=== PATIENT | female | born 1965 | race Caucasian/White ===

== ENCOUNTER 2019-01-02 16:06 | Emergency (ER) | payer OTHER ==
--- OUTSIDE RECORDS SUMMARY | 2019-01-02 16:09 | XMS REPORT | Clinical Summary ---
:1965 Author Organization [facility] Address [address] [place] [address] Care Team Providers Name Role Phone Prabha Fam MD Primary Care Provider Allergies Active Allergy Reactions Severity Noted Date Comments Hydromorphone Hives 12/28/2017 Mushroom Anaphylaxis High 12/29/2017 Nsaids (Non-Steroidal Anti-Inflammatory 07/13/2018 bleeding Drug) Tramadol GI Intolerance 12/28/2017 Medications Medication Sig Dispensed Refills Start Date End Date Status albuterol (PROAIR Inhale 2 0 Active HFA) 90 mcg/actuation puffs every 6 inhaler (six) hours as needed for wheezing. furosemide (LASIX) 20 Take 20 mg by 0 Active mg tablet mouth as needed. fluticasone (FLONASE) 2 sprays by 0 Active 50 mcg/actuation Each Nare nasal spray route daily. acetaminophen-codeine Take 1 tablet 0 Discontinued (TYLENOL WITH CODEINE by mouth 8 #3) 300-30 mg per every 4 tablet (four) hours as needed for moderate pain. DULoxetine (CYMBALTA) Take 1 7 capsule 0 01/01/2018 60 MG capsule capsule (60 8 mg total) by mouth daily for 7 days. methocarbamol Take 1 tablet 40 tablet 0 12/31/2017 (ROBAXIN) 500 MG (500 mg 8 tablet total) by mouth every 6 (six) hours as needed for muscle spasms for up to 10 days. promethazine Take 1 tablet 20 tablet 0 07/13/2018 (PHENERGAN) 12.5 MG (12.5 mg 8 tablet total) by mouth every 6 (six) hours as needed for nausea or vomiting for up to 30 days. doxycycline Take 1 14 capsule 0 07/15/2018 (VIBRAMYCIN) 100 MG capsule (100 8 capsuleIndications: mg total) by Thrombophlebitis of mouth 2 (two) arm, right times a day for 7 days. Active Problems Problem Noted Date Closed displaced fracture of fifth metacarpal bone of left hand 12/29/2017 Displaced fracture of shaft of fifth metacarpal bone, left hand, initial 12/28 encounter for closed fracture Encounters Date Type Specialty Care Team Description 08/29/2018 Office Visit Orthopedic Surgery Ron, Retained orthopedic Amanda Urrutia, hardware (Primary Dx) 07/25/2018 Office Visit Orthopedic Surgery Ron Painful orthopaedic Amanda Urrutia, hardware (Primary Dx) 07/15/2018 Orders Only Orthopedic Surgery Gigi, Thrombophlebitis of Tala Ochoa MA arm, right (Primary Dx) 07/13/2018 Surgery Orthopedic Surgery Ron, REMOVAL, ORTHOPEDIC Amanda Urrutia, HARDWARE SMALL FINGER 07/13/2018 Anesthesia Event Orthopedic Surgery Naty Byrnes MD 07/13/2018 Hospital Encounter Orthopedic Surgery Amanda Velasquez MD 07/05/2018 Pre-Admit Testing Pre-Admission Ron, Preop examination Appointment Testing Amanda Urrutia (Primary Dx) 07/05/2018 Office Visit Orthopedic Kem Velasquez, Left hand pain ( Primary Dx); Amanda Urrutia, Closed displaced fracture of fifth metacarpal bone of left hand with delayed healing, unspecified portion of metacarpal, subsequent encounter 03/30/2018 Office Visit Orthopedic Surgery Ron, Closed displaced Amanda Urrutia, fracture of fifth MD metacarpal bone of left hand with routine healing, unspecified portion of metacarpal, subsequent encounter (Primary Dx) 02/07/2018 Office Visit Orthopedic Kem Velasquez, Closed displaced fracture of shaft of fifth metacarpal bone of left hand with routine healing, subsequent encounter (Primary Dx); Amanda Urrutia Left hand pain 01/10/2018 Office Visit Orthopedic Surgery Ron, Displaced fracture of shaft of fifth metacarpal bone, left hand, initial encounter for closed fracture (Primary Dx); Amanda Ghada, Left hand pain MD after 01/01/2018 Social History Tobacco Use Types Packs/Day Years Used Date Never Smoker Smokeless Tobacco: Never Used Alcohol Use Drinks/Week oz/Week Comments Yes SOCIAL Sex Assigned at Date Recorded Not on file Job Start Date Occupation Industry Not on file Not on file Not on file Travel History Travel Start Travel End No recent travel history available. Last Filed Vital Signs Vital Sign Reading Time Taken Blood Pressure 108/57 07/13/2018 12:17 PM CDT Pulse 51 07/13/2018 12:17 PM CDT Temperature 36.7 C (98 F) 07/13/2018 12:17 PM CDT Respiratory Rate 16 07/13/2018 1:11 PM CDT Oxygen Saturation 95% 07/13/2018 12:17 PM CDT Inhaled Oxygen Concentration - - Weight 118 kg (260 lb 3 oz) 07/13/2018 8:08 AM CDT Height 167.6 cm (5' 6") 07/13/2018 8:08 AM CDT Body Mass Index 42 07/13/2018 8:08 AM CDT Plan of Treatment Health Maintenance Due Date Last Done Comments CERVICAL CANCER SCREENING 1984 BREAST CANCER SCREENING 2013 COLON CANCER SCREENING 2013 SHINGLES VACCINES (#1) 2013 INFLUENZA VACCINE 06/08/2018 Implants Implanted Type Area Drier Transfer Car Operator Device Shelf Model / Identifier Expiration Serial / Lot Date 1.5mm Straight Locking Plate, Alps Hand - [id number] IMPLANT Left: BIOMET TRAUMA [id number] / Implanted: Qty: 1 on 12/29/2017 by Amanda Velasquez MD DEVICES Hand / 1.5mm X 9mm Locking Screw, Alps Hand - [id number] [id number] IMPLANT Left: BIOMET TRAUMA [id number] / Implanted: Qty: 2 on 12/29/2017 by Amanda Velasquez MD DEVICES Hand / 1.5mm X 11mm Locking Screw, Alps Hand - [id number] [id number] IMPLANT Left: BIOMET TRAUMA [id number] / Implanted: Qty: 1 on 12/29/2017 by Amanda Velasquez MD DEVICES Hand / 10ml Cerament (Formerly Bone Support [id number]) - [id number] [id number] IMPLANT Left: [employer] 02/05/2021 [id number] / Implanted: Qty: 1 on 07/13/2018 by Amanda Velasquez MD DEVICES Hand / [id number] 1.5mm X 10mm Locking Screw Ortho Screw Left: BIOMET SPINE, [id number] / Implanted: Qty: 2 on 12/29/2017 by Amanda Velasquez MD Hand TRAUMA, / BRACING, OSTEO (FORMERLY [employer]) Screw Volar Peg Non-Lock 2.5mm 12mm Dvr - [id number] Orthopedic Left: DEPUY [id number] / Implanted: Qty: 1 on 12/29/2017 by Amanda Velasquez MD Trauma Hand ORTHO-KNEES / Implants Procedures Procedure Name Priority Date/Time Associated Comments Diagnosis XR HAND 3+ VW LEFT Routine 08/29/2018 12:56 Left hand pain Results for this PM CDT procedure are in the results section. MN AN ELECTIVE Routine 07/13/2018 9:08 SUPRAGLOTTIC AIRWAY AM CDT Procedure Note - Uziel Madison CRNA - 07/13/2018 9:08 AM CDT Airway Date/Time: 07/13/2018 9:09 AM Performed by: UZIEL MADISON Authorized by: NATY BYRNES Location: OR Urgency: Elective Difficult Airway: No Preoxygenated with 100% O2: Yes C-spine Precautions Maintained Throughout: No Mask Ventilation: Not attempted Final Airway Type: Supraglottic airway LMA Size: 4 Number of Attempts at Approach: 1 Atraumatic, dentition unchanged. REMOVAL, ORTHOPEDIC 07/13/2018 9:00 AM Aftercare for HARDWARE CDT removal of fracture plate or internal fixation device ECG PRE/POST OP Routine 07/05/2018 4:44 PM Preop examination Results for this CDT procedure are in the results section. ZZESTIMATED GFR Routine 07/05/2018 4:33 PM Results for this CDT procedure are in the results section. CBC HEMOGRAM Routine 07/05/2018 4:33 PM Preop examination Results for this CDT procedure are in the results section. HEMOGLOBIN A1C Routine 07/05/2018 4:33 PM Preop examination Results for this CDT procedure are in the results section. BASIC METABOLIC Routine 07/05/2018 4:33 PM Preop examination Results for this PANEL CDT procedure are in the results section. XR HAND 3+ VW LEFT Routine 07/05/2018 3:01 PM Left hand pain Results for this CDT procedure are in the results section. XR HAND 3+ VW LEFT Routine 04/27/2018 3:13 PM Left hand pain Results for this CDT procedure are in the results section. XR HAND 3+ VW LEFT Routine 03/30/2018 2:37 PM Closed displaced Results for this CDT fracture of fifth procedure are in metacarpal bone of the results left hand with section. routine healing, unspecified portion of metacarpal, subsequent encounter XR HAND 3+ VW LEFT Routine 02/07/2018 2:23 PM Left hand pain Results for this CDT Closed displaced procedure are in fracture of shaft of the results fifth metacarpal section. bone of left hand with routine healing, subsequent encounter XR HAND 3+ VW LEFT Routine 01/10/2018 12:53 PM Displaced fracture Results for this RIPSAW GRADER of shaft of fifth procedure are in metacarpal bone, the results left hand, initial section. encounter for closed fracture Left hand pain after 01/01/2018 Results XR Hand 3+ Vw Left (08/29/2018 12:56 PM CDT)Only the most recent of6 resultswithin the time period is included. Narrative Performed At 3 view of left hand shows interval removal of plate/screw construct, lag HM RADIANT screw left in place, fracture healed, no evidence of acute fracture/dislocation. Performing Organization Address [facility]/[employer] Phone Number [email or web address] [address] [place] [address] ECG Pre/Post Op (07/05/2018 4:44 PM CDT) Ventricular rate 56 [facility] Atrial rate 56 [facility] MN interval 142 [facility] QRSD interval 96 [facility] QT interval 412 [facility] QTC interval 397 [facility] P axis 1 31 [facility] QRS axis 1 35 [facility] T wave axis 28 [facility] EKG impression Sinus bradycardia-Otherwise normal ECG-In [facility] MUSE automated comparison with ECG of -DEC-2017 14:13,-No significant change was found- Performing Organization Address City/[facility] Cent[facility] Phone Number [employer] [address] [place] [address] Estimated GFR (07/05/2018 4:33 PM CDT) GFR Non Af Amer 87 mL/min/1.73 m2 [facility] DEPARTMENT OF PATHOLOGY AND GENOMIC MEDICINE GFR Af Amer >90 mL/min/1.73 m2 [facility] DEPARTMENT OF Comment: PATHOLOGY AND GENOMIC Chronic kidney disease: <60 mL/min/1.73m2 MEDICINE Kidney failure: <15 mL/min/1.73m2 The estimated GFR is calculated from the IDMS-traceable Modification of Diet in Renal Disease Equation. The accuracy of the calculation is poor when the creatinine is normal. Calculated values >90 mL/min/1.73m2 are not reported. This equation has not been validated in children (<18 years), women, the elderly (>70 years), or ethnic groups other than Caucasians and Americans. Specimen Plasma specimen Performing Organization Address City/[facility]/Zipcode Phone Number [facility] DEPARTMENT OF PATHOLOGY AND [address] [place] [address] [facility] CBC hemogram (07/05/2018 4:33 PM CDT) WBC 8.37 4.50 - 11.00 k/uL [facility] DEPARTMENT OF PATHOLOGY AND GENOMIC MEDICINE RBC 4.23 4.20 - 5.50 m/uL [facility] DEPARTMENT OF PATHOLOGY AND GENOMIC MEDICINE HGB 12.7 12.0 - 16.0 g/dL [facility] DEPARTMENT OF PATHOLOGY AND GENOMIC MEDICINE HCT 39.0 37.0 - 47.0 % [facility] DEPARTMENT OF PATHOLOGY AND GENOMIC MEDICINE MCV 92.2 82.0 - 100.0 fL [facility] DEPARTMENT OF PATHOLOGY AND GENOMIC MEDICINE MCH 30.0 27.0 - 34.0 pg [facility] DEPARTMENT OF PATHOLOGY AND GENOMIC MEDICINE MCHC 32.6 31.0 - 37.0 g/dL [facility] DEPARTMENT OF PATHOLOGY AND GENOMIC MEDICINE RDW - SD 47.3 37.0 - 55.0 fL [facility] DEPARTMENT OF PATHOLOGY AND GENOMIC MEDICINE MPV 10.3 8.8 - 13.2 fL [facility] DEPARTMENT OF PATHOLOGY AND GENOMIC MEDICINE Platelet count 306 150 - 400 k/uL [facility] DEPARTMENT OF PATHOLOGY AND GENOMIC MEDICINE Nucleated RBC 0.00 /100 WBC [facility] DEPARTMENT OF PATHOLOGY AND GENOMIC MEDICINE Specimen Blood Performing Organization Address City/State/Zipcode Phone Number [facility] DEPARTMENT OF PATHOLOGY AND [address] [place] [id number] [facility] Hemoglobin A1c (07/05/2018 4:33 PM CDT) Hemoglobin A1C 6.2 (H) 4.0 - 5.6 % [facility] DEPARTMENT OF PATHOLOGY Comment: AND GENOMIC MEDICINE HbA1c cutoffs for diagnosing diabetes: 4.0% - 5.6%=normal 5.7% - 6.4%=increased risk for diabetes (prediabetes) >=6.5%=diabetes Goals for glycemic control (ADA 2016) < 7.0%Target for non adults with diabetes. More or less stringent targets may be appropriate for individual patients. <7.5% Target for Children and adolescents with type 1 diabetes. Specimen Blood Performing Organization Address City/State/Zipcode Phone Number [facility] DEPARTMENT OF PATHOLOGY AND [address] [place] [address] [facility] Basic metabolic panel (07/05/2018 4:33 PM CDT) Sodium 143 135 - 148 mEq/L [facility] DEPARTMENT OF PATHOLOGY AND GENOMIC MEDICINE Potassium 4.4 3.5 - 5.0 mEq/L [facility] DEPARTMENT OF PATHOLOGY AND GENOMIC MEDICINE Chloride 102 98 - 112 mEq/L [facility] DEPARTMENT OF PATHOLOGY AND GENOMIC MEDICINE CO2 27 24 - 31 mEq/L [facility] DEPARTMENT OF PATHOLOGY AND GENOMIC MEDICINE Anion gap 14@ANIO 7 - 15 mEq/L [facility] DEPARTMENT OF PATHOLOGY AND GENOMIC MEDICINE BUN 14 6 - 20 mg/dL [facility] DEPARTMENT OF PATHOLOGY AND GENOMIC MEDICINE Creatinine 0.7 0.5 - 0.9 mg/dL [facility] DEPARTMENT OF PATHOLOGY AND GENOMIC MEDICINE Glucose 106 (H) 65 - 99 mg/dL [facility] DEPARTMENT OF PATHOLOGY AND GENOMIC MEDICINE Calcium 9.4 8.3 - 10.2 mg/dL [facility] DEPARTMENT OF PATHOLOGY AND GENOMIC MEDICINE Specimen Plasma specimen Performing Organization Address City/[facility]/Zipcode Phone Number [facility] DEPARTMENT OF PATHOLOGY AND [address] [place] [address] [employer] after 01/01/2018 Insurance Payer Benefit Plan / Group Subscriber ID Type Phone Address AETNA MEDICARE AETNA MEDICARE HMO/PPO [facility] xxxxxxxx HMO Advance Directives Patient has advance care planning documents on file. For more information, please contact:Mcknight [address] [place] [phone]
--- NOTE | 2019-01-02 16:37 | EDPHYS ---
Physician Documentation [facility] Name: Sophia Roy Age: 53 yrs Sex: Female : 1965 Arrival Date: 01/02/2019 Time: 16:10 Bed 13 Private MD: Prabha Fam ED Physician Hema Juarez HPI: 01/03 00:50 This 53 yrs old Female presents to ER via Ambulatory with complaints of snw Shoulder Pain. 00:50 The patient or guardian complains of decreased range of motion, pain. right shoulder snw and right trapezius. Context: resulted from from a chronic condition, after an old injury, The patient experiences decreased range of motion, when attempts to raise arm, The patient reports no obvious deformity. Onset: The symptoms/episode began/occurred gradually. Associated signs and symptoms: Pertinent positives: burning to mid humeral area. Severity of symptoms: At their worst the symptoms were moderate. The patient has experienced similar episodes in the past. The patient has been recently seen by a physician: the patient's primary care provider, with similar presenting complaints. HEALTH INFORMATION CLERK: 01/02 16:30 LMP N/A - Hysterectomy iw Historical: - Allergies: 16:30 Dilaudid; iw 16:30 mushrooms; iw - Home Meds: 16:30 None [Active]; iw - PMHx: 16:30 Arthritis; Asthma; Diverticulitis; Fibromyalgia; GERD; ovarian cancer; degenerative iw spine; - PSHx: 16:30 Hysterectomy; left knee; left hand; right knee; Bladder suspension; iw - Immunization history:: Adult Immunizations not up to date. - Social history:: Smoking status: Patient/guardian denies using tobacco. - Ebola Screening: : Patient negative for fever greater than or equal to 101.5 degrees Fahrenheit, and additional compatible Ebola Virus Disease symptoms Patient denies exposure to infectious person Patient denies travel to an Ebola-affected area in the 21 days before illness onset No symptoms or risks identified at this time. ROS: 01/03 00:48 Constitutional: Negative for fever, chills, and weight loss, Eyes: Negative for injury, snw pain, redness, and discharge, ENT: Negative for injury, pain, and discharge, Neck: Negative for injury, pain, and swelling, Cardiovascular: Negative for chest pain, palpitations, and edema, Respiratory: Negative for shortness of breath, cough, wheezing, and pleuritic chest pain, Abdomen/GI: Negative for abdominal pain, nausea, vomiting, diarrhea, and constipation, Back: Negative for injury and pain, : Negative for injury, bleeding, discharge, and swelling, Skin: Negative for injury, rash, and discoloration, Neuro: Negative for headache, weakness, numbness, tingling, and seizure, Psych: Negative for depression, anxiety, suicide ideation, homicidal ideation, and hallucinations. MS/extremity: Positive for old injury, painful arc at 45 degree to right shoulder, pulses intact. Pt saw Dr. Bolivar today and had outpt x-rays. To ED from rad dept second to pain. Exam: 00:48 Constitutional: This is a well developed, well nourished patient who is awake, alert, snw and in no acute distress. Head/Face: Normocephalic, atraumatic. Eyes: Pupils equal round and reactive to light, extra-ocular motions intact. Lids and lashes normal. Conjunctiva and sclera are non-icteric and not injected. Cornea within normal limits. Periorbital areas with no swelling, redness, or edema. ENT: Nares patent. No nasal discharge, no septal abnormalities noted. Tympanic membranes are normal and external auditory canals are clear. Oropharynx with no redness, swelling, or masses, exudates, or evidence of obstruction, uvula midline. Mucous membranes moist. Neck: Trachea midline, no thyromegaly or masses palpated, and no cervical lymphadenopathy. Supple, full range of motion without nuchal rigidity, or vertebral point tenderness. No Meningismus. Chest/axilla: Normal chest wall appearance and motion. Nontender with no deformity. No lesions are appreciated. Cardiovascular: Regular rate and rhythm with a normal S1 and S2. No gallops, murmurs, or rubs. Normal PMI, no JVD. No pulse deficits. Respiratory: Lungs have equal breath sounds bilaterally, clear to auscultation and percussion. No rales, rhonchi or wheezes noted. No increased work of breathing, no retractions or nasal flaring. Abdomen/GI: Soft, non-tender, with normal bowel sounds. No distension or tympany. No guarding or rebound. No evidence of tenderness throughout. Back: No spinal tenderness. No costovertebral tenderness. Full range of motion. Skin: Warm, dry with normal turgor. Normal color with no rashes, no lesions, and no evidence of cellulitis. MS/ Extremity: Pulses equal, no cyanosis. Neurovascular intact. Full, normal range of motion. Neuro: Awake and alert, GCS 15, oriented to person, place, time, and situation. Cranial nerves II-XII grossly intact. Motor strength 5/5 in all extremities. Sensory grossly intact. Cerebellar exam normal. Normal gait. Psych: Awake, alert, with orientation to person, place and time. Behavior, mood, and affect are within normal limits. Vital Signs: 01/02 16:30 BP 135 / 81; Pulse 62; Resp 16 S; Temp 98.2; Pulse Ox 100% on R/A; Weight 117.93 kg; iw Height 5 ft. 7 in. (170.18 cm); Pain 10/10; 16:30 Body Mass Index 40.72 (117.93 kg, 170.18 cm) iw MDM: 16:22 Patient medically screened. snw 01/03 00:50 Data reviewed: vital signs, nurses notes. Counseling: I had a detailed discussion with snw the patient and/or guardian regarding: the historical points, exam findings, and any diagnostic results supporting the discharge/admit diagnosis, the presence of at least one elevated blood pressure reading (>120/80) during this emergency department visit, radiology results, the need for outpatient follow up, to return to the emergency department if symptoms worsen or persist or if there are any questions or concerns that arise at home. Special discussion: I have referred the patient to see his PCP for further evaluation of high blood pressure. Based on the history and exam findings, there is no indication for further emergent testing or inpatient evaluation. I discussed with the patient/guardian the need to see the orthopedic surgeon for further evaluation of the symptoms. I discussed with the patient/guardian the need to see the primary care provider for further evaluation of the symptoms. Administered Medications: 01/02 16:45 Drug: Valium 5 mg Route: PO; jl7 16:56 Follow up: Response: Medication administered at discharge. jl7 16:56 Not Given (Patient Refused): TORadol 60 mg IM once jl7 Disposition: 01/02/19 16:36 Discharged to Home. Impression: Pain in left shoulder. - Condition is Stable. - Discharge Instructions: Musculoskeletal Pain, Shoulder Pain, Cryotherapy, Heat Therapy. - Prescriptions for orphenadrine citrate 100 mg Oral Tablet Sustained Release - take 1 tablet by ORAL route 2 times per day As needed; 20 tablet. - Medication Reconciliation Form, Thank You Letter, Antibiotic Education, Prescription Opioid Use form. - Follow up: Prabha Fam MD; When: 2 - 3 days; Reason: Recheck today's complaints, Continuance of care, Re-evaluation by your physician. Follow up: Emergency Department; When: As needed; Reason: Worsening of condition. Signatures: Jackeline Hawkins, FORGE UTILITY WORKER-C FORGE UTILITY WORKER-Csnw Hina Serra RN RN iw Scott Lakhani RN RN jl7 Corrections: (The following items were deleted from the chart) 16:55 16:36 01/02/2019 16:36 Discharged to Home. Impression: Pain in left shoulder. Condition jl7 is Stable. Forms are Medication Reconciliation Form, Thank You Letter, Antibiotic Education, Prescription Opioid Use. Follow up: Prabha Fam; When: 2 - 3 days; Reason: Recheck today's complaints, Continuance of care, Re-evaluation by your physician. Follow up: Emergency Department; When: As needed; Reason: Worsening of condition. snw
--- NOTE | 2019-01-02 16:37 | ER ---
Nurse's Notes [facility] Name: Sophia Roy Age: 53 yrs Sex: Female : 1965 Arrival Date: 01/02/2019 Time: 16:10 Bed 13 Private MD: Prabha Fam Diagnosis: Pain in left shoulder Presentation: 01/02 16:26 Presenting complaint: Patient states: has chronic pain to left shoulder, pain has iw gotten worse over past 2 weeks, had xrays done 30 minutes ago, ordered by Dr. Fam, states she can't raise her left arm, hx of dislocation in 2006, no recent injury or trauma. Transition of care: patient was not received from another setting of care. Onset of symptoms was December 19, 2018. Risk Assessment: Do you want to hurt yourself or someone else? Patient reports no desire to harm self or others. Initial Sepsis Screen: Does the patient meet any 2 criteria? No. Patient's initial sepsis screen is negative. Does the patient have a suspected source of infection? No. Patient's initial sepsis screen is negative. Care prior to arrival: None. 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 - Social history:: Smoking status: Patient/guardian denies using tobacco. - Ebola Screening: : Patient negative for fever greater than or equal to 101.5 degrees Fahrenheit, and additional compatible Ebola Virus Disease symptoms Patient denies exposure to infectious person Patient denies travel to an Ebola-affected area in the 21 days before illness onset No symptoms or risks identified at this time. Screenin:30 Abuse screen: Denies threats or abuse. Denies injuries from another. Nutritional jl7 screening: No deficits noted. Tuberculosis screening: No symptoms or risk factors identified. Fall Risk None identified. Assessment: 16:30 General: Appears in no apparent distress. uncomfortable, Behavior is calm, cooperative, jl7 appropriate for age. Pain: Complains of pain in left shoulder Pain currently is 10 out of 10 on a pain scale. Neuro: Level of Consciousness is awake, alert, obeys commands, Oriented to person, place, time, situation. Cardiovascular: Patient's skin is warm and dry. Respiratory: Airway is patent Respiratory effort is even, unlabored, Respiratory pattern is regular, symmetrical. Derm: Skin is pink, warm \T\ dry. Musculoskeletal: Range of motion: intact in all extremities. Vital Signs: 16:30 BP 135 / 81; Pulse 62; Resp 16 S; Temp 98.2; Pulse Ox 100% on R/A; Weight 117.93 kg; iw Height 5 ft. 7 in. (170.18 cm); Pain 10/10; 16:30 Body Mass Index 40.72 (117.93 kg, 170.18 cm) iw ED Course: 16:10 Patient arrived in ED. mr 16:10 Prabha Fam MD is Private Physician. mr 16:14 Scott Lakhani, RN is Primary Nurse. jl7 16:21 [facility]. snw 16:21 Hema Juarez MD is Attending Physician. snw 16:28 Triage completed. iw 16:30 Arm band placed on. iw 16:30 Patient has correct armband on for positive identification. Bed in low position. Call jl7 light in reach. Side rails up X 1. 16:32 Prabha Fam MD is Referral Physician. snw 16:54 No provider procedures requiring assistance completed. Patient did not have IV access jl7 during this emergency room visit. Administered Medications: 16:45 Drug: Valium 5 mg Route: PO; jl7 16:56 Follow up: Response: Medication administered at discharge. jl7 16:56 Not Given (Patient Refused): TORadol 60 mg IM once jl7 Outcome: 16:36 Discharge ordered by . snw 16:54 Discharged to home ambulatory. jl7 16:54 Condition: stable 16:54 Discharge instructions given to patient, family, Instructed on discharge instructions, follow up and referral plans. medication usage, Demonstrated understanding of instructions, follow-up care, medications, Prescriptions given X 1. 16:55 Patient left the ED. jl7 Signatures: Jackeline Hawkins, MMA FIGHTER-C MMA FIGHTER-Csnw Kimber Carney mr Hina Serra, RN RN iw Scott Lakhani RN RN jl7 Corrections: (The following items were deleted from the chart) 16:31 16:30 Pulse 62bpm; Resp 16bpm; Spontaneous; Pulse Ox 100% RA; Temp 98.2F; 117.93 kg; iw Height 5 ft. 7 in.; BMI: 40.7; Pain 10/; iw
[2019-01-02] MEDS ORDERED: DIAZEPAM 5 MG TABLET ONE (16:50)
[2019-01-02] MEDS ORDERED: KETOROLAC 30 MG/ML INJ ONE (16:51)
== END 2019-01-02 16:55 | disposition home or self-care (01) ==
LOC: ER 16:06
DX: M25.511 Pain in right shoulder (principal); Z85.43 Personal history of malignant neoplasm of ovary; Z88.8 Allergy status to other drugs, medicaments and biological substances; Z91.018 Allergy to other foods
CPT/HCPCS: 99283